=== PATIENT | female | born 1980 | race Caucasian/White ===

== ENCOUNTER 2019-06-16 22:39 | Inpatient (IN) | payer OTHER ==
[~2019-06-16] VITALS: Ht 167.6 cm; Wt 95.9 kg
[2019-06-16] MEDS ORDERED: D5%-LACTATED RINGERS 1,000 ML IV SCH (22:55)
[2019-06-16] MEDS ORDERED: OXYTOCIN 30U/ 0.9% NaCL 500ML 500 ML IV ONE (22:55)
[2019-06-16] MEDS ORDERED: NEWBORN KIT ONE (22:59)
[2019-06-16] MEDS ORDERED: FENTANYL PF 100 MCG/2ML IVPush PRN (23:00)
[2019-06-16] MEDS ORDERED: MISOPROSTOL 200 MCG TABLET ONE (23:00)
[2019-06-16] MEDS ORDERED: OXYTOCIN 30U/ 0.9% NaCL 500ML 500 ML ONE (23:00)
[2019-06-16] MEDS ORDERED: TERBUTALINE 1 MG/ML, 1ML IVPush PRN (23:00)
[2019-06-16] MEDS ORDERED: TERBUTALINE 1 MG/ML, 1ML SQ PRN (23:00)
[2019-06-16] MEDS ORDERED: FENTANYL PF 100 MCG/2ML IV PRN (23:00)
[2019-06-16] MEDS: LACTATED RINGERS 1,000 ML IV SCH (23:00)
[2019-06-16 23:19] LABS: MEAN CORPUSCULAR HEMOGLOBIN 30.1 pg (27.0-34.8); MEAN CORPUSCULAR HGB CONC 32.8 g/dL (32.4-35.8); MEAN CORPUSCULAR VOLUME 91.6 fL (80-100); MEAN PLATELET VOLUME 10.1 fL (7.4-10.4); PLATELET COUNT 122 x10^3/uL (130-400); RED BLOOD COUNT 4.05 x10^6/uL (3.82-5.3)
[2019-06-16 23:29] LABS: BASOPHILS # (AUTO) 0.05 x10^3/uL (0-0.1); BASOPHILS % (AUTO) 1 % (0-1); EOSINOPHILS # (AUTO) 0.11 x10^3/uL (0-0.4); EOSINOPHILS % (AUTO) 1 % (1-7); LYMPHOCYTES # (AUTO) 2.31 x10^3/uL (1-3.4); LYMPHOCYTES % (AUTO) 26 % (22-44); MD SCAN; MONOCYTES # (AUTO) 0.76 x10^3/uL (0.2-0.8); MONOCYTES % (AUTO) 9 % (2-9); NEUTROPHILS # (AUTO) 5.76 x10^3/uL (1.8-6.8); NEUTROPHILS % (AUTO) 64 % (42-75)
[2019-06-17] MEDS ORDERED: OXYTOCIN 30U/ 0.9% NaCL 500ML 500 ML IV PRN (01:30)
[2019-06-17] MEDS ORDERED: CALCIUM CARBONATE 500 MG TAB.CHEW ONE ×3 (04:01→16:00)
[2019-06-17] MEDS: CALCIUM CARBONATE 500 MG TAB.CHEW PO PRN ×3 (04:02→16:45)
[2019-06-17] MEDS ORDERED: FENTANYL EPIDCONT SCH (06:53)
[2019-06-17] MEDS ORDERED: BUPIVACAINE EPIDCONT SCH (06:53)
[2019-06-17] MEDS ORDERED: [UNRECOGNIZED DRUG - OTHER] EPIDCONT SCH (06:53)
[2019-06-17] MEDS ORDERED: FENTANYL PF 100 MCG/2ML ONE (07:11)
[2019-06-17] MEDS ORDERED: BUPIVACAINE 0.25% ONE (07:11)
[2019-06-17] MEDS ORDERED: FENTANYL/BUPIV./NS/PF 250 ML EPIDCONT ONE (07:32)
[2019-06-17] MEDS ORDERED: PREN1TAB60 PO (09:02)
[2019-06-17] MEDS: LACTATED RINGERS 1,000 ML IV SCH (10:48)
[2019-06-17] MEDS ORDERED: ONDANSETRON 2MG/ML, 2ML ONE ×2 (13:16→15:45)
[2019-06-17] MEDS: ONDANSETRON 2MG/ML, 2ML IVPush PRN ×2 (13:21→15:49)
[2019-06-17] MEDS: OXYTOCIN 30U/ 0.9% NaCL 500ML 500 ML IV SCH (17:16)
[2019-06-17] MEDS ORDERED: OXYTOCIN 30U/ 0.9% NaCL 500ML 500 ML ONE (17:23)
[2019-06-17] MEDS ORDERED: CARBOPROST TROMETHAMINE 250 MCG/ML, 1ML IM PRN (17:30)
[2019-06-17] MEDS ORDERED: RHOGAM FROM BLOOD BANK 1 NOTE EA IM/IV ONE (17:30)
[2019-06-17] MEDS ORDERED: MISOPROSTOL 200 MCG TABLET PR PRN (17:30)
[2019-06-17] MEDS ORDERED: DIPH,PERTUSS(ACELL),TET VAC/PF NC IM-VACC PRN (17:30)
[2019-06-17] MEDS ORDERED: METHYLERGONOVINE 0.2 MG/ML IM PRN (17:30)
[2019-06-17] MEDS ORDERED: SIMETHICONE 80 MG CHEW TAB PO PRN (17:30)
[2019-06-17] MEDS ORDERED: OXYcodone/APAP 5/325MG TABLET PO PRN ×2 (17:30)
[2019-06-17] MEDS ORDERED: IBUPROFEN 600 MG TABLET ONE (17:52)
[2019-06-17] MEDS: IBUPROFEN 600 MG TABLET PO PRN (17:54)
[2019-06-17 19:45] VITALS: BP 122/74
[2019-06-17] MEDS: DOCUSATE 100 MG CAPSULE PO PRN (21:29)
[2019-06-17] MEDS: ACETAMINOPHEN 325 MG TABLET PO PRN (21:29)
[2019-06-18] MEDS: IBUPROFEN 600 MG TABLET PO PRN ×3 (00:03→12:09)
[2019-06-18 00:05] VITALS: BP 111/71
[2019-06-18 01:11] LABS: MEAN CORPUSCULAR HEMOGLOBIN 30.2 pg (27.0-34.8); MEAN CORPUSCULAR HGB CONC 33.1 g/dL (32.4-35.8); MEAN CORPUSCULAR VOLUME 91.4 fL (80-100); MEAN PLATELET VOLUME 10.2 fL (7.4-10.4); PLATELET COUNT 89 x10^3/uL (130-400); RED BLOOD COUNT 3.31 x10^6/uL (3.82-5.3); RED CELL DISTRIBUTION WIDTH 13.4 % (9.6-15.2)
[2019-06-18 01:26] LABS: BASOPHILS # (AUTO) 0.04 x10^3/uL (0-0.1); BASOPHILS % (AUTO) 0 % (0-1); EOSINOPHILS # (AUTO) 0.06 x10^3/uL (0-0.4); EOSINOPHILS % (AUTO) 0 % (1-7); LYMPHOCYTES # (AUTO) 1.46 x10^3/uL (1-3.4); LYMPHOCYTES % (AUTO) 11 % (22-44); MD SCAN; MONOCYTES # (AUTO) 0.67 x10^3/uL (0.2-0.8); MONOCYTES % (AUTO) 5 % (2-9); NEUTROPHILS # (AUTO) 11.71 x10^3/uL (1.8-6.8); NEUTROPHILS % (AUTO) 84 % (42-75)
[2019-06-18] MEDS: ACETAMINOPHEN 325 MG TABLET PO PRN ×4 (02:52→15:50)
[2019-06-18] MEDS: OXYTOCIN 30U/ 0.9% NaCL 500ML 500 ML IV SCH (03:16)
[2019-06-18 04:45] VITALS: BP 116/76
[2019-06-18 08:00] VITALS: BP 112/73
[2019-06-18] MEDS: DOCUSATE 100 MG CAPSULE PO PRN (08:06)
[2019-06-18] MEDS ORDERED: PRENATAL VIT/IRON/FA 1 EACH TABLET PO SCH (09:00)
[2019-06-18 15:45] VITALS: BP 106/64
== END 2019-06-18 18:00 | disposition home or self-care (01) | DRG 806 ==
LOC: LDOP 22:39 → LDIP 22:56 → 2NW 06-17 19:30
PROVIDERS: ADMIT Obstetrics & Gynecology Maternal & Fetal Medicine; ATTEND Obstetrics & Gynecology Maternal & Fetal Medicine
PROC: 10E0XZZ Delivery of Products of Conception, External Approach (ICD-10-PCS; principal; 2019-06-17)
PROC: 3E0R3BZ Introduction of Anesthetic Agent into Spinal Canal, Percutaneous Approach (ICD-10-PCS; 2019-06-17)
PROC: 00HU33Z Insertion of Infusion Device into Spinal Canal, Percutaneous Approach (ICD-10-PCS; 2019-06-17)
DX: O71.4 Obstetric high vaginal laceration alone (principal); O99.12 Other diseases of the blood and blood-forming organs and certain disorders involving the immune mechanism complicating childbirth; Z37.0 Single live birth; Z3A.40 40 weeks gestation of pregnancy
CPT/HCPCS: 36415; J7121; 85025; 86592; 86900; G0378; J2405; J2590; J3010; J7120